=== PATIENT | male | born 1980 | race Caucasian/White ===

== ENCOUNTER 2017-01-27 11:25 | Emergency (ER) | payer OTHER ==
[2017-01-27] MEDS ORDERED: KETOROLAC 15 MG/1 ML SDV IVP ONE (11:59)
[2017-01-27] MEDS ORDERED: DEXAMETHASONE 4 MG/ML VIAL IVP ONE (11:59)
[2017-01-27] MEDS ORDERED: DIAZEPAM 10 MG/2 ML SYR IVP ONE (11:59)
--- NOTE | 2017-01-27 12:02 | EDPHY ---
H & P Stated Complaint: lower back injury at work today Time Seen by Provider: 01/27/17 11:47 HPI/ROS: CHIEF COMPLAINT: Bilateral lumbar pain after pushing a heavy Pallet HISTORY OF PRESENT ILLNESS: 36-year-old male arrives via private vehicle complaining of acute paraspinous lumbar back pain after he was at work pushing a 50 lb pallet and felt immediate pain in his low back. No direct trauma or fall. No paresthesia. No radiculopathy. No incontinence or retention. No saddle anesthesia. No prior history of injury. Occurred shortly prior to arrival. No abdominal pain. No dyspnea. No fever or chills. No flu-like symptoms. REVIEW OF SYSTEMS: A ten point review of systems was performed and is negative with the exception of the items mentioned in the HPI PAST MEDICAL & SURGICAL HISTORY: No pertinent medical or surgical history SOCIAL HISTORY: works at [employer] PHYSICAL EXAM (Prior to examination, patient consented to physical exam, hands were washed and my usual and customary physical exam procedures followed) 1) GENERAL: Well-developed, well-nourished, alert and oriented. Appears uncomfortable, stiff . 2) HEAD: Normocephalic, atraumatic 3) HEENT: Pupils equal, round, reactive to light bilaterally. Sclera anicteric. Nasopharynx, oropharynx, clear, no lesions. 4) NECK: Full range of motion, no meningeal signs. 5) LUNGS: Clear auscultation bilaterally, no wheezes, no rhonchi, no retractions. 6) HEART: Regular rate and rhythm, no murmur, no heave, no gallop. 7) ABDOMEN: No guarding, no rebound, no focal tenderness, negative McBurney's, negative Parra's, negative Rovsing's, negative peritoneal sign, 8) MUSCULOSKELETAL: Moving all extremities, no focal areas of tenderness, no obvious trauma. No peripheral edema or discoloration. 9) BACK: tender to palpation paraspinous muscle in the lumbar region. Pain reproducible with range of motion No CVA tenderness, no midline vertebral tenderness, no fluctuance, no step-off, no obvious trauma, no visual or palpable abnormality. Patella, Achilles reflexes intact to bilateral strength 5 /5 10) SKIN: No rash, no petechiae. DIFFERENTIAL DIAGNOSIS: In no particular order, including but not limited to, fracture, sprain/strain, cauda equina, spinal infectious etiology. MEDICAL DECISION MAKING Lower index of suspicion for cauda equina, epidural abscess, epidural hematoma, lumbar myositis, diskitis, as the patient is neurologically intact in the lower extremities, has patella and Achilles reflexes intact and equal bilaterally, has no neurologic deficits, no incontinence, no retention, no midline pain, no fluctuance, afebrile, no flulike symptoms. Pain may be secondary to muscular strain, may be secondary to discogenic etiology. At this point I do not identify definitive indication for emergent MRI, however patient may necessitate this on an outpatient basis. Patient given acute back pain precautions. Patient verbalizes understanding of discharge instructions. I believe them be competent decision-makers. All questions and concerns have been addressed by me. Ample opportunity for questions have been provided . The patient understands that this diagnosis is provisional and can never be 100 % accurate. Usual and customary warnings were given concerning the clinical impression and all the patient's questions were answered. The patient was instructed to return to the emergency department should her symptoms worsen or return, or develop any new symptoms, otherwise to followup as directed in discharge instructions. Care of patient under supervision of secondary supervising physician Dr Smith . - Personal History Current Tetanus/Diphtheria Vaccine: Yes Current Tetanus Diphtheria and Acellular Pertussis (TDAP): Yes Tetanus Vaccine Date: <10 years - Medical/Surgical History Hx Asthma: No Hx Chronic Respiratory Disease: No Hx Diabetes: No Hx Cardiac Disease: No Hx Renal Disease: No Hx Cirrhosis: No Hx Alcoholism: No Hx HIV/AIDS: No Hx Splenectomy or Spleen Trauma: No Other PMH: right knee sx, shoulder sx - Social History Smoking Status: Current every day smoker Constitutional: Initial Vital Signs Temperature (C) 37 C 01/27/17 11:34 Heart Rate 79 01/27/17 11:34 Respiratory Rate 20 01/27/17 11:34 Blood Pressure 115/80 01/27/17 11:34 O2 Sat (%) 95 01/27/17 11:34 O2 Delivery Mode Room Air Allergies/Adverse Reactions: No Known Allergies Allergy (Verified 01/27/17 11:33) Home Medications: Medication Instructions Recorded Cyclobenzaprine [Flexeril 10 MG 10 mg PO TID #15 tab 01/27/17 (RX)] methylPREDNISolone [Medrol Dose 4 mg PO DAILY #1 ea 01/27/17 Landon] Medical Decision Making Procedures: Procedure: Trigger point injection Indications: Focal tenderness at the paraspinous lumbar region Indications risks benefits discussed with patient. Using d 0.5% plain bupivacaine on a 27 gauge needle that was introduced into the muscle, multiple injections were fanned. Careful attention paid to anatomic landmarks. Patient tolerated procedure well. - Data Points Medications Given: Discontinued Medications Dexamethasone (Decadron Injection) 8 mg IVP EDNOW ONE Stop: 01/27/17 12:00 Last Admin: 01/27/17 12:04 Dose: 8 mg Diazepam (Valium Injection) 5 mg IVP EDNOW ONE Stop: 01/27/17 12:00 Last Admin: 01/27/17 12:05 Dose: 5 mg Ketorolac Tromethamine (Toradol) 15 mg IVP EDNOW ONE Stop: 01/27/17 12:00 Last Admin: 01/27/17 12:05 Dose: 15 mg Departure - Departure Disposition: Home, Routine, Self-Care Clinical Impression: Acute low back pain Qualifiers: Back pain laterality: bilateral Sciatica presence: without sciatica Qualified Code(s): M54.5 - Low back pain Condition: Good Instructions: Acute Low Back Pain (ED) Additional Instructions: Seek medical attention if you develop new or worsening pain, if you develop bladder or bowel dysfunction, numbness around your perineum, foot drop, or any other symptoms that concern you. Referrals: Follow-up, with your work comp provider in 1-2 days [Other] - As per Instructions Stand Alone Forms: Work Comp Follow Up, Work Excuse Prescriptions: Cyclobenzaprine [Flexeril 10 MG (RX)] 10 mg PO TID #15 tab methylPREDNISolone [Medrol Dose Landon] 4 mg PO DAILY #1 ea
[2017-01-27] MEDS ORDERED: fentaNYL 100 MCG/2 ML INJ IVP ONE (12:56)
[2017-01-27 14:34] VITALS: BP 114/72; PULSE 64; RESP 12; TEMP 98.2; O2SAT 97
== END 2017-01-27 14:28 | disposition home or self-care (01) ==
PROC: 3E023GC Introduction of Other Therapeutic Substance into Muscle, Percutaneous Approach (ICD-10-PCS; principal; 2017-01-27)
DX: S39.92XA Unspecified injury of lower back, initial encounter (principal); F17.200 Nicotine dependence, unspecified, uncomplicated; X50.0XXA Overexertion from strenuous movement or load, initial encounter; Y92.69 Other specified industrial and construction area as the place of occurrence of the external cause; Y99.0 Civilian activity done for income or pay; Y93.89 Activity, other specified
CPT/HCPCS: 96374; J1100; J1885; J3010

== ENCOUNTER 2017-05-24 23:22 | Emergency (ER) | payer SELFPAY ==
[2017-05-24 23:29] VITALS: BP 146/84; PULSE 75; RESP 16; TEMP 99; O2SAT 98
--- NOTE | 2017-05-24 23:40 | EDPHY ---
H & P Stated Complaint: R CHEEK SWOLLEN HPI/ROS: HPI CHIEF COMPLAINT: Dental pain HISTORY OF PRESENT ILLNESS: This patient very pleasant 37-year-old male, no significant medical history presents emergency room with dental pain. Patient has a history of extensive dental decay. He has right upper incisor started bothering him over 24 hr any decided come the emergency room for evaluation. Past Medical History: Denies medical history Past Surgical History: Denies surgical history Social History: Smokes tobacco daily, denies illicit drugs or alcohol. Family History: Noncontributory ROS REVIEW OF SYSTEMS: A comprehensive 10 point review of systems is otherwise negative aside from elements mentioned in the history of present illness. Exam Constitutional triage nursing summary reviewed, vital signs reviewed, awake/ alert. Eyes normal conjunctivae and sclera, EOMI, PERRLA. HENT oral pharynx: Extensive dental decay. However right upper incisor Tooth # 5: Shows Decay, along gumline tenderness, no abscess. No signs of Vitaliy's. Throughout the oropharynx upper and lower there is dental decay present. No gumline abscess visualized. Uvula midline. Tongue normal. atraumatic, moist mucus membranes, no epistaxis, neck supple/ no meningismus, no raccoon eyes. Respiratory clear to auscultation bilaterally, normal breath sounds, no respiratory distress, no wheezing. Cardiovascular rate normal, regular rhythm, no murmur, no edema, distal pulses normal. Gastrointestinal soft, non-tender, no rebound, no guarding, normal bowel sounds, no distension, no pulsatile mass. Genitourinary no CVA tenderness. Musculoskeletal no midline vertebral tenderness, full range of motion, no calf swelling, no tenderness of extremities, no meningismus, good pulses, neurovascularly intact. Skin pink, warm, & dry, no rash, skin atraumatic. Neurologic awake, alert and oriented x 3, AAOx3, moves all 4 extremities equally, motor intact, sensory intact, CN II-XII intact, normal cerebellar, normal vision, normal speech. Psychiatric normal mood/affect. Heme/Lymph/Immune no lymphadenopathy. Differential Diagnosis: Includes but is not limited to in a particular order extensive dental decay. Dental caries, apical abscess, pulpitis. Medical Decision Making: Plan for this patient referral to dentistry. Recommend Pen-VK antibiotic as prescribed. Ibuprofen for pain control. Follow up with dentistry. Return emergency room if there is worsening symptoms questions concerns. 1st dose of Pen-VK will be given here in emergency room. Ibuprofen for pain control. Source: Patient - Personal History Current Tetanus Diphtheria and Acellular Pertussis (TDAP): Yes Tetanus Vaccine Date: <10 years - Medical/Surgical History Hx Asthma: No Hx Chronic Respiratory Disease: No Hx Diabetes: No Hx Cardiac Disease: No Hx Renal Disease: No Hx Cirrhosis: No Hx Alcoholism: No Hx HIV/AIDS: No Hx Splenectomy or Spleen Trauma: No Other PMH: right knee sx, shoulder sx, R INDEX FINGER - Social History Smoking Status: Current every day smoker Constitutional: Initial Vital Signs Temperature (C) 37.2 C 05/24/17 23:26 Heart Rate 75 05/24/17 23:26 Respiratory Rate 16 05/24/17 23:26 Blood Pressure 146/84 H 05/24/17 23:26 O2 Sat (%) 98 05/24/17 23:26 O2 Delivery Mode Room Air Allergies/Adverse Reactions: No Known Allergies Allergy (Verified 01/27/17 11:33) Home Medications: Medication Instructions Recorded Penicillin V Potassium [Penicillin 500 mg PO BID #14 tab 05/24/17 VK] Departure - Departure Disposition: Home, Routine, Self-Care Clinical Impression: Dental decay Condition: Good Instructions: Toothache (ED) Additional Instructions: 1. Please follow up with dentistry. 2. Antibiotic as prescribed. 3. Return emergency room if you have worsening symptoms questions or concerns. Referrals: NONE *PRIMARY CARE P,. [Primary Care Provider] - As per Instructions Dental Aid [Outside] - As per Instructions Dental [facility] [Outside] - As per Instructions Prescriptions: Penicillin V Potassium [Penicillin VK] 500 mg PO BID #14 tab
[2017-05-24] MEDS ORDERED: PENICILLIN VK 250MG PREPACK#6 BTL TAKEHOME ONE (23:44)
[2017-05-24] MEDS ORDERED: IBUPROFEN 800 MG TAB PO ONE (23:44)
[2017-05-24] MEDS ORDERED: PENICILLIN VK 500 MG TAB PO ONE (23:44)
== END 2017-05-24 23:55 | disposition home or self-care (01) ==
DX: K02.9 Dental caries, unspecified (principal); F17.200 Nicotine dependence, unspecified, uncomplicated

== ENCOUNTER 2017-05-25 05:19 | Emergency (ER) | payer SELFPAY ==
--- NOTE | 2017-05-25 05:26 | EDPHY ---
H & P HPI/ROS: HPI CHIEF COMPLAINT: Dental pain, swelling, seen here earlier HISTORY OF PRESENT ILLNESS: Patient very pleasant 37-year-old male who I saw earlier for dental infection and poor dentition. He was prescribed ibuprofen and Pen-VK that time received dose in the emergency room. He now presents back to the emergency room stating that the pain and swelling is worse. Patient states that the gumline above his tooth this decaying that was previously giving him discomfort has now become more puffy. He denies any fever trouble swelling. Denies chest pain or shortness of breath. Main complaint worsening dental pain. Patient reports to me that he has a follow-up appointment with dentistry at 2: 00 p.m. today. Past Medical History: Denies medical history Past Surgical History: Denies surgical history Social History: Smokes tobacco daily, denies illicit drugs or alcohol. Family History: Noncontributory ROS REVIEW OF SYSTEMS: A comprehensive 10 point review of systems is otherwise negative aside from elements mentioned in the history of present illness. Exam Constitutional triage nursing summary reviewed, vital signs reviewed, awake/ alert. Eyes normal conjunctivae and sclera, EOMI, PERRLA. HENT oropharynx: Again visualized is very poor dentition with dental caries, the previous noted tooth number tooth 5/6/7 gumline above tooth 567 there is a small gumline abscess, moist mucus membranes, no epistaxis, neck supple/ no meningismus, no raccoon eyes. Respiratory clear to auscultation bilaterally, normal breath sounds, no respiratory distress, no wheezing. Cardiovascular rate normal, regular rhythm, no murmur, no edema, distal pulses normal. Gastrointestinal soft, non-tender, no rebound, no guarding, normal bowel sounds, no distension, no pulsatile mass. Genitourinary no CVA tenderness. Musculoskeletal no midline vertebral tenderness, full range of motion, no calf swelling, no tenderness of extremities, no meningismus, good pulses, neurovascularly intact. Skin pink, warm, & dry, no rash, skin atraumatic. Neurologic awake, alert and oriented x 3, AAOx3, moves all 4 extremities equally, motor intact, sensory intact, CN II-XII intact, normal cerebellar, normal vision, normal speech. Psychiatric normal mood/affect. Heme/Lymph/Immune no lymphadenopathy. Differential Diagnosis: Includes but is not limited to in a particular order, dental decay, dental caries, apical abscess, dental abscess, pulpitis, gumline abscess, Vitaliy's Medical Decision Making: Plan for this patient I do recommend he continues taking his pen VK, ibuprofen for mild pain I will also give her prescription for [place], additionally he has a follow-up appoint with dentistry at 2:00 p.m. I do recommend he continues this appointment and goes there for definitive care of most likely apical infection and gumline abscess. Re-evaluation: Dental Procedure: Small gumline abscess above Tooth 5/6/7. Very minimal fluctance. Dental decay present. A small needle was used to jarad/puncture this abscess, <1cc of pus was removed. Lidocaine <2cc was instilled into the gumline. Patient tolerated this well. No complications. Patient understands follow-up with dentistry. [place] prescription provided. Continue Pen-VK from earlier and ibuprofen. Source: Patient - Personal History Tetanus Vaccine Date: <10 years - Medical/Surgical History Hx Asthma: No Hx Chronic Respiratory Disease: No Hx Diabetes: No Hx Cardiac Disease: No Hx Renal Disease: No Hx Cirrhosis: No Hx Alcoholism: No Hx HIV/AIDS: No Hx Splenectomy or Spleen Trauma: No Other PMH: right knee sx, shoulder sx, R INDEX FINGER - Social History Smoking Status: Current every day smoker Constitutional: Initial Vital Signs Temperature (C) 37.0 C 05/25/17 05:22 Heart Rate 73 05/25/17 05:22 Respiratory Rate 16 05/25/17 05:22 Blood Pressure 115/87 H 05/25/17 05:22 O2 Sat (%) 96 05/25/17 05:22 O2 Delivery Mode Room Air Allergies/Adverse Reactions: No Known Allergies Allergy (Verified 01/27/17 11:33) Home Medications: Medication Instructions Recorded Penicillin V Potassium [Penicillin 500 mg PO BID #14 tab 05/24/17 VK] Hydrocodone/APAP 5/325 [[place] 1 - 2 tab PO Q4H PRN #10 tab 05/25/17 5/325] Departure - Departure Disposition: Home, Routine, Self-Care Clinical Impression: Dental decay, Pain, dental, Gum abscess Condition: Good Instructions: Toothache (ED), Dental Abscess (ED) Additional Instructions: 1. Recommend you keep in follow-up with dentistry today. 2. [place] if you are having severe pain, IBU for mild pain. Referrals: NONE *PRIMARY CARE P,. [Primary Care Provider] - As per Instructions Dental Aid [Outside] - As per Instructions Dental [facility] [Outside] - As per Instructions Prescriptions: Hydrocodone/APAP 5/325 [[place] 5/325] 1 - 2 tab PO Q4H PRN #10 tab PRN Reason: Pain, Moderate
[2017-05-25 05:27] VITALS: BP 115/87; PULSE 73; RESP 16; TEMP 98.6; O2SAT 96
== END 2017-05-25 06:22 | disposition home or self-care (01) ==
DX: K02.9 Dental caries, unspecified (principal); K04.7 Periapical abscess without sinus; F17.200 Nicotine dependence, unspecified, uncomplicated